=== PATIENT | female | born 1965 | race Caucasian/White ===

== ENCOUNTER 2019-07-09 17:58 | Emergency (ER) | payer MEDICAID ==
[~2019-07-09] VITALS: Ht 153.7 cm; Wt 61.7 kg
[2019-07-09 18:01] VITALS: BP 128/76
--- NOTE | 2019-07-09 18:10 | NUR ---
C/O ESTEFANI LOWER BACK PAIN CHILLS, AND VAGINAL ITCHING X 2 WEEKS. DENIES DYSURIA. PAIN 8/10. PMH- DM. DENIES N/V/D; SKIN IS PINK/WARM/DRY;PATIENT POSITIONED FOR COMFORT; HOB ELEVATED; BEDRAILS UP X1; BED DOWN. ER MD MADE AWARE OF PT STATUS.
--- NOTE | 2019-07-09 19:12 | NUR ---
Pt report given to LULU BALDWIN. Transfer of care at this time.
--- NOTE | 2019-07-09 19:19 | NUR ---
BLOOD SUGAR CHECKED AT THIS TIME 267. MADE AWARE.
[2019-07-09 19:44] LABS: APPEARANCE,URINE CLEAR (CLEAR); BILIRUBIN,URINE NEGATIVE (NEGATIVE); BLOOD, URINE NEGATIVE (NEGATIVE); COLOR,URINE YELLOW (YELLOW); LEUKOCYTE ESTERASE ,URINE NEGATIVE (NEGATIVE); NITRITE, URINE NEGATIVE (NEGATIVE); PH,URINE 5.5 (5.0-9.0); UGLUCOSE 3+ (NEGATIVE)
[2019-07-09] MEDS ORDERED: KETOROLAC 15 MG/ML VIAL IM ONE (19:55)
--- NOTE | 2019-07-09 20:00 | NUR ---
PT RESTING IN BED NO SIGNS OF DISTRESS. PT STATES PAIN HAS REDUCED TO 5/10. WILL CONTINUE TO MONITOR.
--- NOTE | 2019-07-09 21:00 | NUR ---
EXTRACT WRINGER AT BED SIDE
[2019-07-09 21:34] LABS: BASOPHILS # (AUTO) 0.1 K/uL (0.00-0.22); BASOPHILS % (AUTO) 0.4 % (0.0-2.0); EOSINOPHILS # (AUTO) 0.3 K/uL (0-0.4); HEMATOCRIT 43.4 % (36-48); HEMOGLOBIN 14.7 g/dL (12.0-16.0); LYMPHOCYTES # (AUTO) 6.9 K/uL (2.5-16.5); MEAN CORPUSCULAR HEMOGLOBIN 31 pg (27-31); MEAN CORPUSCULAR HGB CONC 34 g/dL (33-37); MEAN CORPUSCULAR VOLUME 92.1 fL (80-94); MONOCYTES # (AUTO) 0.8 K/uL (0.8-1.0); MONOCYTES % (AUTO) 6.1 % (1.7-9.3); NEUTROPHILS # (AUTO) 5.7 K/uL (1.8-7.7); NEUTROPHILS % (AUTO) 41.5 % (42.2-75.2); PLATELET COUNT (AUTO) 229 K/uL (140-450); RED BLOOD CELL COUNT(AUTO) 4.71 MIL/uL (4.20-5.40); RED CELL DISTRIBUTION WIDTH 13.9 % (11.6-13.7); WHITE BLOOD COUNT (AUTO) 13.8 K/uL (4.8-10.8)
[2019-07-09 21:45] LABS: ANION GAP 12.2 (8-16); CARBON DIOXIDE 31.8 mmol/L (21-32); CREATININE 0.9 mg/dL (0.6-1.3)
--- NOTE | 2019-07-09 21:50 | NUR ---
PELVIC EXAM PERFORMED BY DR SPRING
--- NOTE | 2019-07-09 22:37 | NUR ---
PT RESTING IN BED NO SIGNS OF OBVIOUS DISTRESS. PT STABLE. WILL CONTINUE TO MONITOR.
--- NOTE | 2019-07-10 00:20 | NUR ---
PT RESTING IN BED NO SIGNS OF DISTRESS. VSS. STATES PAIN IS TOLERABLE. WILL CONTINUE TO MONITOR.
--- NOTE | 2019-07-10 00:46 | NUR ---
Dr. Nowak examining patient.
[2019-07-10 01:36] VITALS: BP 97/51
--- NOTE | 2019-07-10 01:36 | NUR ---
Patient discharged with v/s stable. Written and verbal after care instructions given and explained. Patient verbalized understanding. Carried with steady gait. All questions addressed prior to discharge. Advised to follow up with PMD.
[2019-07-12 07:15] LABS: CHLAMYDIA TRACHOMATIS AMP DNA Negative (Negative)
== END 2019-07-10 01:36 | disposition home or self-care (01) ==
LOC: MED 17:58
DX: R10.30 Lower abdominal pain, unspecified (principal); R35.8 Other polyuria; N89.8 Other specified noninflammatory disorders of vagina; R30.0 Dysuria; E11.9 Type 2 diabetes mellitus without complications; Z98.890 Other specified postprocedural states; Z88.1 Allergy status to other antibiotic agents; Z88.2 Allergy status to sulfonamides; Z88.8 Allergy status to other drugs, medicaments and biological substances
CPT/HCPCS: 36415; 80048; 81003; 81025; 82948; 85025; 87210; 96372; 99283; J1885

== ENCOUNTER 2021-06-25 06:09 | Day surgery (SDC) | payer OTHER ==
[~2021-06-25] VITALS: Ht 154.9 cm; Wt 59.0 kg
[2021-06-25] MEDS ORDERED: LIDOCAINE 2% 1000 MG/50 ML VIAL INJ ONE (07:14)
[2021-06-25 08:00] LABS: BASOPHILS # (AUTO) 0.1 K/uL (0.00-0.22); BASOPHILS % (AUTO) 0.5 % (0.0-2.0); EOSINOPHILS # (AUTO) 0.5 K/uL (0-0.4); HEMATOCRIT 39.4 % (36-48); HEMOGLOBIN 13.1 g/dL (12.0-16.0); LYMPHOCYTES # (AUTO) 8.4 K/uL (2.5-16.5); MEAN CORPUSCULAR HEMOGLOBIN 32 pg (27-31); MEAN CORPUSCULAR HGB CONC 33 g/dL (33-37); MEAN CORPUSCULAR VOLUME 95.2 fL (80-94); MONOCYTES # (AUTO) 1.4 K/uL (0.8-1.0); MONOCYTES % (AUTO) 9.1 % (1.7-9.3); NEUTROPHILS # (AUTO) 4.9 K/uL (1.8-7.7); NEUTROPHILS % (AUTO) 32.4 % (42.2-75.2); PLATELET COUNT (AUTO) 225 K/uL (140-450); RED BLOOD CELL COUNT(AUTO) 4.14 MIL/uL (4.20-5.40); RED CELL DISTRIBUTION WIDTH 13.5 % (11.6-13.7); WHITE BLOOD COUNT (AUTO) 15.2 K/uL (4.8-10.8)
[2021-06-25] MEDS ORDERED: fentaNYL citrate 0.05 MG/ML VIAL ONE (08:03)
[2021-06-25 08:08] LABS: PROTHROMBIN TIME 10.4 secs (10.8-13.4)
[2021-06-25] MEDS ORDERED: MORPHINE SULFATE 2 MG/ML SYR IVP PRN (08:45)
[2021-06-25] MEDS ORDERED: MORPHINE SULFATE 2 MG/ML SYR ONE (08:48)
[2021-06-25] MEDS ORDERED: fentaNYL citrate 0.05 MG/ML VIAL IVP ONE (09:35)
== END 2021-06-25 10:17 | disposition home or self-care (01) ==
LOC: MDS 06:09 → MMU 06:18 → MDS 10:17
PROVIDERS: ATTEND Internal Medicine Gastroenterology
DX: R94.5 Abnormal results of liver function studies (principal); R10.11 Right upper quadrant pain; K82.4 Cholesterolosis of gallbladder; E11.9 Type 2 diabetes mellitus without complications; Z79.4 Long term (current) use of insulin; Z88.1 Allergy status to other antibiotic agents; Z79.899 Other long term (current) drug therapy
CPT/HCPCS: 36415; 47000; 76942; 85025; 85610; 85730; J2001; J2270; J3010

== ENCOUNTER 2021-07-12 07:40 | Day surgery (SDC) | payer OTHER ==
[~2021-07-12] VITALS: Ht 154.9 cm; Wt 59.0 kg
[2021-07-12] MEDS ORDERED: LIDOCAINE 2% 100 MG/5 ML UJET TP ONE ×3 (09:11→10:55)
[2021-07-12] MEDS ORDERED: fentaNYL citrate 0.05 MG/ML VIAL ONE (09:11)
[2021-07-12] MEDS ORDERED: SIMETHICONE 40 MG/0.6 ML PO ONE (09:40)
[2021-07-12] MEDS ORDERED: MIDAZOLAM 5 MG/5 ML VIAL ONE ×2 (10:19→10:44)
[2021-07-12] MEDS ORDERED: fentaNYL citrate 0.05 MG/ML VIAL IVP ONE (11:20)
[2021-07-12] MEDS ORDERED: MIDAZOLAM 2 MG/2 ML VIAL IVP ONE (11:20)
== END 2021-07-12 12:30 | disposition home or self-care (01) ==
LOC: MDS 07:40 → MMU 07:41 → MDS 12:30
PROVIDERS: ATTEND Internal Medicine Gastroenterology
DX: Z12.11 Encounter for screening for malignant neoplasm of colon (principal); K63.5 Polyp of colon; R94.5 Abnormal results of liver function studies; K82.4 Cholesterolosis of gallbladder; E11.9 Type 2 diabetes mellitus without complications; Z79.4 Long term (current) use of insulin; Z79.899 Other long term (current) drug therapy
CPT/HCPCS: 45385; J2250; J3010